=== PATIENT | male | born 1965 | race Two or more races ===

== ENCOUNTER → 2023-10-09 | Emergency (ER) | payer OTHER ==
[~2023-10-09] VITALS: Ht 182.9 cm; Wt 111.1 kg
[~2023-10-09] MED LIST: SEROQUEL400 MG PO; SINGULAIR10 MG PO; XANAX XR2 MG PO
== END | disposition left against medical advice (07) ==
LOC: ER 13:32
DX: Z53.21 Procedure and treatment not carried out due to patient leaving prior to being seen by health care provider (principal)